=== PATIENT | female | born 2000 | race Caucasian/White ===

== ENCOUNTER 2023-11-02 16:45 | Emergency (ER) | payer SELFPAY ==
[~2023-11-02] VITALS: Ht 162.6 cm; Wt 70.0 kg
[2023-11-02 17:15] VITALS: O2SAT 99
[2023-11-02 19:04] VITALS: BP 126/62; PULSE 78; RESP 16; TEMP 98.2
== END 2023-11-02 19:09 | disposition home or self-care (01) ==
LOC: ER 16:45
DX: S61.219A Laceration without foreign body of unspecified finger without damage to nail, initial encounter (principal); J45.909 Unspecified asthma, uncomplicated; X58.XXXA Exposure to other specified factors, initial encounter; Y93.89 Activity, other specified; Y92.89 Other specified places as the place of occurrence of the external cause; Y99.8 Other external cause status
CPT/HCPCS: 12001; 99282